=== PATIENT | female | born 1945 | race Caucasian/White ===

== ENCOUNTER → 2023-03-13 10:39 | Outpatient (REF) | payer MEDICARE, OTHER, SELFPAY ==
--- NOTE | 2023-03-13 10:45 | CA_ITS ---
Transthoracic Echocardiogram Patient (Last, First, Middle): Elzbieta Griggs, Gender: Female Date of : 1945 Age: 78 Procedure Date: 03/13/2023 Procedure Type: Transthoracic Echocardiogram Location: [facility] Height: 162.56 cm Weight: 63.5 kg BSA: 1.68 m2 Heart Rate: bpm BP: 126 / 68 mmHg Equine Manager: TO Referring MD: Hugo Mcconnell [employer] CONSULT[employer] Laborer: Omkar Austin MD Symptoms: R53.81, R53.83 MALAISE AND FATIGUE Study Quality: Fair ECG Rhythm: Sinus Conclusions: - Essentially normal study Findings Left Ventricle Normal left ventricular size, thickness, and systolic function. The visually estimated ejection fraction is between 60-65%. Spectral Doppler is indicative of an impaired relaxation filling pattern. E/E prime ratio is between 8 and 15 consistent with indeterminate filling pressures. Peak GLS is -21.0%, within normal limits. Right Ventricle Normal right ventricular cavity size and systolic function. Atria Both atria are normal in size. There is lipomatous hypertrophy of the interatrial septum. There is no evidence of interatrial shunt. Aortic Valve Normal aortic valve structure and function. There is no aortic valve stenosis. There is no aortic valve regurgitation. Mitral Valve There is mild anterior mitral leaflet thickening. There is trace mitral valve regurgitation. There is no mitral valve stenosis. Pulmonic Valve The pulmonic valve is likely normal. Tricuspid Valve Normal tricuspid valve structure. There is trace tricuspid valve regurgitation. The right ventricular systolic pressure is normal. The right ventricular systolic pressure is 32 mmHg. Normal right atrial pressure. There is no evidence of pulmonary hypertension. Great Vessels All visible segments of the aorta are normal in size. The pulmonary artery was not well visualized. Venous The inferior vena cava is normal in size and collapses greater than 50% with inspiration. Pericardium/Pleural There is no evidence of pericardial effusion. Prior Study Comparison No prior study available for comparison. Measurements 2D Linear Measurements IVSd: 1.31 0.6-0.9/0.6-1.0 cm LVIDd: 4.13 3.9-5.3/4.2-5.9 cm LVIDd Index: 2.46 2.4-3.2/2.2-3.1 cm/m2 LVIDs: 2.57 2.0-3.6 cm LVPWd: 0.80 0.7-1.1 cm LA Diam: 3.00 2.7-3.8/3.0-4.0 cm LAIDs Index: 1.79 1.5-2.3 cm/m2 LV Mass: 179.31 67-162/88-224 g LV Mass Index: 106.73 43-95/49-115 g/m2 LVOT Diam: 2.30 3.0+(-)1.3 cm 2D Systolic Function EF 4C: 63.10 >55% EF 2C: 58.20 >55% EF BiP: 60.40 >55% Mitral Valve MV Pk E: 0.78 MV PK A: 0.69 MV Decel Time: 217.00 E/A: 1.10 E'Lateral: 8.92 E'Medial: 5.66 E/E' Med: 13.70 E/E' Lat: 8.70 PHT: 64.00 MVA PHT: 3.44 Decel Owsley: 3.57 Aortic Valve AoV Pk Kleber: 1.23 AoV Mn Kleber: 0.81 AoV VTI: 0.26 AoV Pk Grad: 6.00 Aov Mn Grad: 3.00 JOCELYNN Cont.VTI: 3.53 LVOT LVOT Pk Kleber: 0.93 LVOT Mn Kleber: 0.57 LVOT VTI: 0.22 LVOT Pk Grad: 3.00 LVOT Mn Grad: 2.00 LVOT Diam: 2.30 LVOT Area: 4.15 Diastolic Function MV Pk E: 0.78 MV Pk A: 0.69 E/A: 1.10 E'Medial: 5.66 E/E' Med: 13.70 E' Laterial: 8.92 E/E' Lat: 8.70 Right Ventricle TAPSE (mm): 20.80 TVS' Kleber: 12.70 Tricuspid Valve TR Pk Kleber: 2.69 TR Pk Grad: 29.00 RA Press: 3.00 RVSP: 32.00 Great Vessels Aorta Sinus of Valsalva: 3.38 2.0-3.5 cm Ao Asc: 3.50 2.1-3.4 cm Updated in Other Vendor System with Status of Final Omkar Austin MD electronically signed on 03/14/2023 11:31:27 AM with status of Final
== END ==
LOC: HO.CARD 10:39
PROVIDERS: PCP Nurse Practitioner Adult Health; Visit Provider Nurse Practitioner Adult Health
DX: R53.81 Other malaise (principal); R53.83 Other fatigue
CPT/HCPCS: 93306